=== PATIENT | female | born 1945 | race Caucasian/White ===

== ENCOUNTER 2017-04-27 14:48 | Outpatient (CLI) | payer MEDICARE, BC ==
--- NOTE | 2017-04-27 15:50 | RAD ---
RIGHT ANKLE THREE VIEWS: History: Right ankle injury. FINDINGS: Ankle mortise is intact. Irregular well corticated ossifications adjacent to the medial malleolus has the appearance of an old ossific avulsion. There is osteophytosis throughout the ankle and hindfoot. No acute fracture or dislocation are apparent. IMPRESSION: Osteoarthritis. Old injuries as detailed above. No acute osseous abnormalities are demonstrated. POS: [facility]
--- NOTE | 2017-04-27 15:54 | RAD ---
RIGHT FOOT THREE VIEWS: History: Right foot pain. FINDINGS: Lisfranc joint alignment is anatomic. Plantar arch is maintained. Prominent osteophytosis is present throughout the foot. Achilles and plantar enthesophytes arise from the posterior aspect of the calcan eus. There is hallux valgus and bunion deformity. Joint space narrowing and osteophytosis are most pr onounced at the first metatarsal phalangeal joint. IMPRESSION: 1. Prominent osteoarthritic changes right foot. 2. Hallus valgus and bunion deformity. 3. Heal spurs. POS: [facility]
== END 2017-04-27 14:49 | disposition home or self-care (01) ==
LOC: BURRAD 14:48
PROVIDERS: ATTEND Family Medicine
DX: M79.671 Pain in right foot (principal); M25.571 Pain in right ankle and joints of right foot; M19.071 Primary osteoarthritis, right ankle and foot; M20.11 Hallux valgus (acquired), right foot; M21.611 Bunion of right foot; M77.8 Other enthesopathies, not elsewhere classified

== ENCOUNTER 2018-01-04 14:13 | Outpatient (CLI) | payer MEDICARE, BC ==
--- NOTE | 2018-01-04 20:44 | RAD ---
RIGHT SHOULDER THREE VIEWS: 01/04/18 No acute fracture or dislocation was seen. There is a marked amount of bony overgrowth in the right A C joint, probably due to prior trauma here. The greater tubercle of the humerus has a very bulbous ap pearance, also suggesting that there may have been old trauma to this location. The visible adjacent ribs were unremarkable. IMPRESSION: Degenerative and old posttraumatic changes as noted. POS: HOME
--- NOTE | 2018-01-04 20:46 | RAD ---
LEFT SHOULDER THREE VIEWS: 01/04/18 Comparison is made with the right shoulder. A bony density is seen along the inferior lip of the glenoid which could be a Bankart's lesion from a prior dislocation or other trauma. The greater tubercle is irregular, suggestive of prior trauma her e. There may have been old trauma to the distal clavicle as well. There is no AC joint widening. IMPRESSION: Degenerative and old traumatic changes as noted. POS: HOME
--- NOTE | 2018-01-04 21:54 | RAD ---
LUMBAR SPINE THREE VIEWS: 01/04/18 Comparison is made with a prior study of 03/23/16. Again seen is posterior fusion of L4 and L5 with p edicle screws on the left side. Minimal anterolisthesis of L4 on L5 is about the same as before. Ther e is greater disc space narrowing at L4-L5 and L5-S1 than previously. Disc space narrowing is promine nt at the other lumbar levels as well. L1-L2 represents a new disc space narrowing with intense osteo phytes and bony sclerosis here that were not present before. No fractures were seen. The SI joints ar e symmetrical. There appears to be a faint amount of contrast in the bladder and distal ureters, though I am not yogi e from what procedure. A vague rounded semi-opacified density is seen in the left adnexal region. I t could be related to a ureter, but the finding is indeterminate as to origin or significance. IMPRESSION: 1. Degenerative changes throughout. Most are similar to before except for increased disc space n arrowing at L4-5 and L5-S1. 2. The largest change is new disc space narrowing and osteophytes at L1-L2. POS: HOME
== END 2018-01-04 14:14 | disposition home or self-care (01) ==
LOC: BURRAD 14:13
PROVIDERS: ATTEND Family Medicine
DX: M25.511 Pain in right shoulder (principal); M25.512 Pain in left shoulder; M54.5 Low back pain; M47.896 Other spondylosis, lumbar region; M48.061 Spinal stenosis, lumbar region without neurogenic claudication; M48.07 Spinal stenosis, lumbosacral region; M19.012 Primary osteoarthritis, left shoulder; M19.011 Primary osteoarthritis, right shoulder
CPT/HCPCS: 72100

== ENCOUNTER 2020-12-29 14:23 | Outpatient (CLI) | payer MEDICARE | END 2020-12-29 14:24 | disposition home or self-care (01) | LOC: BURRAD 14:23 | PROVIDERS: ATTEND Family Medicine | DX: M54.5 Low back pain (principal); G89.29 Other chronic pain; M51.36 Other intervertebral disc degeneration, lumbar region; G95.20 Unspecified cord compression | CPT/HCPCS: 72100 ==